=== PATIENT | female | born 1960 | race Caucasian/White ===

== ENCOUNTER 2017-06-13 06:35 | Day surgery (SDC) | payer OTHER ==
[2017-06-11 13:38] VITALS: BMI 35.2
[2017-06-13] MEDS ORDERED: SUCCINYLCHOLINE CHLORIDE 200 MG/10 ML VIAL ONE (07:27)
[2017-06-13] MEDS ORDERED: PROPOFOL 20 ML ONE (07:27)
[2017-06-13] MEDS ORDERED: LIDOCAINE HCL/PF 2% SDV 5ML VIAL ONE (07:27)
[2017-06-13 07:47] VITALS: TEMP 98.2
[2017-06-13] MEDS ORDERED: BUPIVACAINE HCL/PF 0.5% (5MG/ML) 10 ML VIAL ONE (07:54)
[2017-06-13] MEDS ORDERED: LIDOCAINE HCL 1%, 10 MG/ML (20ML VIAL) ONE (07:54)
--- NOTE | 2017-06-13 08:04 | HP ---
Satellite [facility] - Chief Complaint Chief Complaint: right wrist mass - Past Medical History Allergies/Adverse Reactions: Allergies Allergy/AdvReac Type Severity Reaction Status Date / Time No Known Allergies Allergy Verified 06/13/17 07:20 - Current Medications Current Medications: Home Medications Medication Instructions Recorded Hydrocodone/Acetaminophen [[place] 1 each PO Q6H PRN #40 tablet MDD 4 06/13/17 5-325 Tablet] Satellite Physical Exam - Physical Examination Vital Signs: Vital Signs Period Temp Pulse Resp BP Sys/Whittaker Pulse Ox Last 24 Hr 98.2 F 80 18 124/74 99 General Appearance: Well Nourished, Well Developed, Alert & Oriented x3 ENT: Clear Lung: Normal air movement Heart: Regular rate & rhythm Extremities: Other (right wrist- volar ganglion cyst, nvi) Neurological: Intact, Alert, Oriented Satellite Impression/Plan - Impression/Plan Impression: right wrist ganglion cyst Operative Procedure: right wrist ganglion cyst excision Date to be Performed: 06/13/17
[2017-06-13 08:14] LABS: URINE APPEARANCE CLEAR; URINE BILIRUBIN NEGATIVE (NEGATIVE); URINE BLOOD 1+ (NEGATIVE); URINE COLOR YELLOW; URINE GLUCOSE (UA) NEGATIVE (NEGATIVE); URINE KETONE NEGATIVE (NEGATIVE); URINE LEUK ESTERASE NEGATIVE (NEGATIVE); URINE NITRITE NEGATIVE (NEGATIVE); URINE PROTEIN NEGATIVE (NEGATIVE); URINE UROBILINOGEN NEGATIVE mg/dL (0.2-1.0)
[2017-06-13 08:18] LABS: URINE MUCUS RARE; URINE RBC 1 /hpf (0-3); URINE WBC 2 /hpf (3-5)
[2017-06-13] MEDS ORDERED: methylPREDNISolone ACET (DEPO) 80 MG/1 ML VIAL ONE (08:39)
--- NOTE | 2017-06-13 08:51 | OP ---
Operative Note - Note: Operative Date: 06/13/17 ([facility]) Pre-Operative Diagnosis: right wrist ganglion cyst Operation: right wrist ganglion cyst excision Post-Operative Diagnosis: Same as Pre-op Surgeon: Drew Hyatt Anesthesia: Local Specimens Removed: cyst Estimated Blood Loss (mls): 0 (tourniquet) Operative Report Dictated: Yes
--- NOTE | 2017-06-13 08:52 | OP ---
Operative Note - Note: Operative Date: 06/13/17 Pre-Operative Diagnosis: right wrist mass, recurrent severe right trigger thumb Operation: right wrist mass excision, trigger thumb cortisone injection Post-Operative Diagnosis: Same as Pre-op Surgeon: Drew Hyatt Anesthesiologist/WEB CONTENT COORDINATOR: Randi Marte Anesthesia: Local Specimens Removed: mass right wrist Estimated Blood Loss (mls): 0 Blood Volume Replaced (mls): 0 Fluid Volume Replaced (mls): 0 Operative Report Dictated: Yes
[2017-06-13 09:39] VITALS: BP 146/86; PULSE 92
--- NOTE | 2017-06-13 11:02 | OP ---
DATE OF OPERATION: 06/13/2017 SURGEON: Maddie Sharp MD PREOPERATIVE DIAGNOSIS: Mass, right wrist and right trigger-thumb. POSTOPERATIVE DIAGNOSIS: Mass, right wrist and right trigger-thumb. PROCEDURE: Excision mass, right wrist and trigger-thumb cortisone injection. DRAINS: None. BLOOD LOSS: None. BLOOD GIVEN: None. FLUID REPLACEMENT: 500 mL. SPECIMEN: Mass, right wrist. INDICATIONS: This patient is a 56-year-old female with a preoperative diagnosis of a painful mass in the volar radial aspect of the right wrist and a severe recurrent right trigger-thumb. After understanding the potential risks, complications, alternatives, and benefits of surgery versus nonsurgical treatment, the patient elected to undergo this procedure. The patient was noncompliant with preoperative instructions and ate a blueberry this morning. Therefore after discussion with the patient and Anesthesia, we decided to do the surgery under just straight local anesthesia. DESCRIPTION OF PROCEDURE: The patient was brought to the operating room, The right upper extremity was prepped and draped in sterile fashion. A transverse incision was marked out over the painful volar radial right wrist mass. Then, 8 mL of 0.5% Marcaine 1% lidocaine mix was injected in and around the surgical incision, and the other 2 mL of local around the right trigger-thumb A1 jill sheath area. The right upper extremity was then elevated, exsanguinated with an Esmarch bandage, and the tourniquet was inflated to 250 mmHg. A transverse incision was made within Langers lines with the No. 15 scalpel blade. Subcutaneous hemostasis was achieved with a bipolar cautery. Circumferential dissection was done with a curved Iris Scissors exposing the mass. This seemed to be adherent to a vascular structure or was vascular in nature. It was not the radial artery proper. It looked like a small ganglion cyst, but there was a bluish component to a portion of it. Circumferential dissection was done. There was a stalk which was identified making it more likely that it was a ganglion cyst. This went down to the volar radial wrist crease. It was decapitated at its base and cauterized at its base. It was passed off the field as specimen. The area was copiously irrigated and washed out. I could not see or feel any other abnormal tissue. The tourniquet was put down after a total tourniquet time of 14 minutes, and I watched for bleeding. There was not excessive bleeding after waiting 2 minutes. I then cauterized in the area of very small amount of bleeding mostly in the subcutaneous area, but also in the area of the mass excision. I waited again. No other excessive bleeding was seen. It was irrigated again. Closure of the deep dermal layer was done with 4-0 undyed Vicryl. Final skin reapproximation was done with some of the running subcuticular 4-0 Biosyn stitch. The area was then washed and dried, covered with Steri-Strips. Next, I injected 80 mg of Depo-Medrol around the right thumb A1 jill sheath area for the severe right trigger-thumb. That area was washed and dried, as well. Both areas were covered with sterile gauze, 4x4, and Coban. Yudi was taken down. She was completely stable throughout the 15-minute procedure and was brought to the ambulatory recovery room in stable condition. MADDIE SHARP M.D. [id number]
--- NOTE | 2017-06-15 17:10 | PATH ---
Surgical Pathology Report Patient Name: HANDY NOLAN [facility]. Rec. #: [id number] /Age/Gender: 1960 (Age: 56) / F Account: [id number] Location: [facility] SURGICAL Taken: 06/13/2017 Received: 06/13/2017 Reported: 06/15/2017 Physicians: Drew Hyatt M.D. Specimen(s) Received GANGLION CYST RIGHT WRIST Clinical History Ganglion right wrist Final Diagnosis SOFT TISSUE, RIGHT WRIST, EXCISION: GANGLION CYST. Electronically Signed Brent Fountain M.D. Gross Description Received in formalin labeled "ganglion right wrist," are 2 díaz soft tissue fragments measuring 0.4 and 0.5 cm in greatest dimension. The specimens are submitted in toto in one cassette. 06/13/201706/13/2017
== END 2017-06-13 09:40 | disposition home or self-care (01) ==
LOC: JASU-SURG 06:35
PROVIDERS: ATTEND Orthopaedic Surgery
PROC: 3E0U33Z Introduction of Anti-inflammatory into Joints, Percutaneous Approach (ICD-10-PCS; 2017-06-13)
PROC: 0LB50ZZ Excision of Right Lower Arm and Wrist Tendon, Open Approach (ICD-10-PCS; principal; 2017-06-13 08:00)
DX: M67.431 Ganglion, right wrist (principal); M65.311 Trigger thumb, right thumb
CPT/HCPCS: 81003; 81015; 88304-TC